=== PATIENT | female | born 1955 | race Caucasian/White ===

== ENCOUNTER → 2017-07-11 | Day surgery (SDC) | payer OTHER ==
[~2017-07-11] MED LIST: FENTANYL 100MCG/2ML SOL ONE; LIDOCAINE HCL 1% MPF SOL ONE; PROPOFOL 500 MG/50 ML EMU IV ONE
[2017-07-11 11:48] VITALS: RESP 20
[2017-07-11 12:41] VITALS: BP 153/95; PULSE 75; TEMP 97.7; O2SAT 94
== END | disposition home or self-care (01) | DRG 951 ==
LOC: SURG 10:37
PROVIDERS: ATTEND Surgery
DX: Z12.11 Encounter for screening for malignant neoplasm of colon (principal); D12.2 Benign neoplasm of ascending colon; Z86.010 Personal history of colon polyps; K57.30 Diverticulosis of large intestine without perforation or abscess without bleeding; D12.4 Benign neoplasm of descending colon; D12.7 Benign neoplasm of rectosigmoid junction
CPT/HCPCS: 99001; J3010; J2001; J2704

== ENCOUNTER 2018-07-31 12:49 | Outpatient (CLI) | payer BC ==
[2017-07-11 12:41] VITALS: O2SAT 94
== END 2018-07-31 12:50 | disposition home or self-care (01) ==
LOC: CONVCARE 12:49
PROVIDERS: ATTEND Orthopaedic Surgery
DX: M25.562 Pain in left knee (principal); M25.561 Pain in right knee
CPT/HCPCS: 73502; 73562